=== PATIENT | female | born 1950 | race Caucasian/White ===

== ENCOUNTER 2016-12-22 10:44 | Day surgery (SDC) | payer MEDICARE, MEDICAID ==
[~2016-12-22] VITALS: Ht 175.3 cm; Wt 91.6 kg
[~2016-12-22 10:44] MED LIST: BENA20TA3 PO; CINA30 PO; DOCU-138 PO
[2016-12-22] MEDS ORDERED: GELATIN SPONGE,ABSORBABLE SZ 100 ONE (11:35)
[2016-12-22 11:37] LABS: BASOPHILS % 0.7 % (0.0-2.0); HEMATOCRIT. 33.5 % (36.0-48.0); HEMOGLOBIN. 11.5 g/dL (12.0-16.0); LYMPHOCYTES % 26.7 % (20.0-50.0); MEAN CORPUSCULAR HEMOGLOBIN 37.6 pg (28.0-32.0); MEAN CORPUSCULAR VOLUME 109.4 fL (81.0-99.0); MEAN PLATELET VOLUME 6.1 fl (7.4-10.4); MONOCYTES % 8.2 % (2.0-8.0); NEUTROPHILS % 58.4 % (40.0-76.0); PLATELET 213 x1000/uL (130-400); RED BLOOD CELL COUNT 3.07 mill/uL (4.2-5.4); RED CELL DISTRIBUTION WIDTH 16.6 % (11.6-14.6)
[2016-12-22] MEDS ORDERED: HEPARIN SODIUM 1,000 UNIT/1ML VIAL IV ONE (11:37)
[2016-12-22] MEDS ORDERED: BUPIVACAINE HCL/PF 0.5% (5MG/ML) 10ML ONE (11:37)
[2016-12-22] MEDS ORDERED: THROMBIN (BOVINE) 5000 UNITS/VIAL TOP ONE (11:37)
[2016-12-22] MEDS ORDERED: LIDOCAINE HCL 1% 20ML VIAL (Pyxis) INJ ONE (11:37)
[2016-12-22] MEDS ORDERED: BACITRACIN ZINC 15GM TUBE TOP ONE (11:38)
[2016-12-22] MEDS ORDERED: SODIUM CHLORIDE 0.9% 500 ML IV ONE (11:45)
[2016-12-22 11:48] LABS: INR 1.1; PARTIAL THROMBOPLASTIN TIME 27.4 sec (24.0-34.0); PROTHROMBIN TIME 11.3 sec
[2016-12-22] MEDS ORDERED: DEXTROSE 50% WATER 50ML SYRINGE IV ONE (12:22)
[2016-12-22] MEDS ORDERED: ALBUMIN HUMAN 12.5G/250ML (5%) IV ONE ×2 (12:23→12:52)
[2016-12-22] MEDS ORDERED: CHOL100046 PO (12:41)
[2016-12-22] MEDS ORDERED: DEXAMETHASONE 4MG/ML 1ML VIAL ONE (12:41)
[2016-12-22] MEDS ORDERED: CAPE500T15 PO ×2 (12:41)
[2016-12-22] MEDS ORDERED: FOLI0.8T23 PO (12:41)
[2016-12-22] MEDS ORDERED: BENA40TA3 PO (12:41)
[2016-12-22] MEDS ORDERED: ETOMIDATE 2MG/ML 10ML VIAL IV ONE (12:41)
[2016-12-22] MEDS ORDERED: DILT300T10 PO (12:41)
[2016-12-22] MEDS ORDERED: ONDANSETRON HCL 4MG/2ML VIAL ONE (12:41)
[2016-12-22] MEDS ORDERED: DOCU-138 PO (12:41)
[2016-12-22] MEDS ORDERED: LEVO25TA7 PO (12:41)
[2016-12-22] MEDS ORDERED: CEFAZOLIN SODIUM 1000MG/VIAL ONE (12:41)
[2016-12-22] MEDS ORDERED: CINA30 PO (12:41)
[2016-12-22] MEDS ORDERED: FENTANYL CITRATE/PF 50MCG/ML 2ML VIAL ONE (12:44)
[2016-12-22] MEDS ORDERED: HEPARIN SODIUM 1,000 UNIT/1ML VIAL IV NR (15:14)
[2016-12-22] MEDS ORDERED: FENTANYL CITRATE/PF 50MCG/ML 2ML VIAL IV NR (15:30)
[2016-12-22 15:36] VITALS: BP 147/65
== END 2016-12-22 17:30 | disposition home or self-care (01) ==
LOC: OR 10:44
PROVIDERS: ATTEND Surgery Vascular Surgery
DX: I12.0 Hypertensive chronic kidney disease with stage 5 chronic kidney disease or end stage renal disease (principal); N18.6 End stage renal disease; Z99.2 Dependence on renal dialysis; I25.10 Atherosclerotic heart disease of native coronary artery without angina pectoris; D64.9 Anemia, unspecified; H40.9 Unspecified glaucoma; Z85.038 Personal history of other malignant neoplasm of large intestine; Z85.05 Personal history of malignant neoplasm of liver; K21.9 Gastro-esophageal reflux disease without esophagitis
CPT/HCPCS: 36415; 36821; 80048; 82962; 85025; 85610; 85730; J0690; J1100; J1644; J2405; J3010; J3490; J7040; P9041